=== PATIENT | female | born 1985 | race American Indian/Alaskan Native ===

== ENCOUNTER 2017-06-20 02:40 | Emergency (ER) | payer OTHER ==
[2017-06-20 03:12] VITALS: BP 111/78
[2017-06-20] MEDS ORDERED: ASPIRIN PO ONE (03:12)
[2017-06-20 04:04] LABS: Basophils % (Auto) 0.7 % (0.0-1.8); Eosinophils % (Auto) 0.6 % (0.0-4.3); Hematocrit 36.5 % (30.3-42.9); Hemoglobin 12.3 gm/dl (10.1-14.3); Lymphocytes % (Auto) 28.6 % (13.4-35.0); Mean Corpuscular HGB Conc 34 % (30-34); Mean Corpuscular Hemoglobin 30 pg (28-32); Mean Corpuscular Volume 88 fl (79-97); Mean Platelet Volume 9.1 fl (6-12); Monocytes % (Auto) 5.1 % (0.0-7.3); Platelet Count 254 K/mm3 (140-440); Red Blood Count 4.15 M/mm3 (3.65-5.03); Red Cell Distribution Width 13.5 % (13.2-15.2)
[2017-06-20 04:05] LABS: Basophils # (Auto) 0.1 K/mm3 (0.0-0.1); Eosinophils # (Auto) 0.1 K/mm3 (0.0-0.4); Lymphocytes # (Auto) 2.5 K/mm3 (1.2-5.4); Monocytes # (Auto) 0.5 K/mm3 (0.0-0.8)
[2017-06-20 04:11] LABS: BUN/Creatinine Ratio 28; Blood Urea Nitrogen 14 mg/dL (7-17); Calcium 9.2 mg/dL (8.4-10.2); Hemolysis Index 7
[2017-06-20] MEDS ORDERED: ASPIRIN ONE (08:34)
--- NOTE | 2017-06-20 10:29 | XRay Report ---
CHEST ONE VIEW INDICATION: Chest pain. COMPARISON: None similar at this institution. FINDINGS: Portable, single, frontal chest radiograph demonstrates normal cardiomediastinal silhouette. Clear lungs. Unremarkable bones. CONCLUSION: No acute disease in the chest. Thank you for the opportunity to participate in this patient's care.
[2017-06-20 10:45] LABS: Bacteria,Urine 4+ /HPF (Negative); Bilirubin,Urine NEG (Negative); Blood,Urine LG (Negative); Color,Urine Yellow (Yellow); Mucus,Urine 3+ /HPF; Urobilinogen,Urine < 2.0 mg/dL (<2.0)
[2017-06-20 10:46] LABS: WBC,Urine > 182.0 /HPF (0.0-6.0)
--- NOTE | 2017-06-20 10:47 | Emergency Department Report ---
HPI - General Chief Complaint: Chest Pain Time Seen by Provider: 06/20/17 09:22 - HPI HPI: The patient is a 32-year-old female presents for evaluation of chest pain. The patient reports chest pain for the past one week, achy in quality, midsternal in location, exacerbated with movement, mild in severity. She has a secondary complaint of dysuria for the past 1-2 weeks, mild in severity. The patient denies fever, neck pain, parasthesias, dyspnea, cough, hemoptysis, palpitations , dizziness, syncope, unilateral leg swelling, calf muscle pain, abdominal pain , vomiting, diarrhea, vaginal bleeding. Patient also denies cocaine or other stimulant use, history of DVT or PE, recent immobilization, or history of cancer. ED Past Medical Hx - Past Medical History Previous Medical History?: No - Surgical History Past Surgical History?: No - Social History Smoking Status: Former Smoker Substance Use Type: Alcohol - Medications Home Medications: Home Medications Medication Instructions Recorded Confirmed Last Taken Type Cephalexin [Keflex] 500 mg PO QID #30 capsule 06/20/17 Unknown Rx Fluconazole [Diflucan TAB] 150 mg PO ONCE #1 tablet 06/20/17 Unknown Rx Ibuprofen [Motrin] 800 mg PO Q8HR PRN #10 tablet 06/20/17 Unknown Rx metroNIDAZOLE [Flagyl] 500 mg PO Q12HR #14 tab 06/20/17 Unknown Rx ED Review of Systems ROS: Stated complaint: CP Other details as noted in HPI Constitutional: denies: fever ENT: denies: throat or neck pain Respiratory: denies: cough, shortness of breath Cardiovascular: reports chest pain Endocrine: denies unexplained weight loss or gain Gastrointestinal: denies: abdominal pain, nausea Genitourinary: reports dysuria Musculoskeletal: denies: leg swelling Skin: denies: rash Neurological: denies: headache Hematological/Lymphatic: denies: easy bleeding or easy bruising Psych: denies sadness or hopelessness Physical Exam - Physical Exam Vital Signs: Vital Signs 06/20/17 06/20/17 03:02 03:03 Temperature 99.0 F Pulse Rate 86 83 Respiratory 16 Rate Blood Pressure 111/78 O2 Sat by Pulse 96 98 Oximetry Physical Exam: General: well-nourished, well-developed, no acute distress Head: Normocephalic, atraumatic Eyes: normal sclera ENT: Mucous membranes are pink and moist Neck: trachea midline, neck supple, No neck stiffness, no cervical adenopathy Respiratory: Breath sounds equal bilaterally, no wheezing, rales, or rhonchi Cardio: S1 and S2 present, no murmurs, rubs, gallops, capillary refill is brisk Abdomen: Normoactive bowel sounds, soft abdomen, no rigidity, no guarding or rebound tenderness Chest WALL/Back: No tenderness to palpation of the chest wall, no CVA tenderness with percussion Musc: No pitting edema Skin: No rash Neuro: no facial drooping, normal speech Psych: Normal affect ED Course Vital Signs 06/20/17 06/20/17 03:02 03:03 Temperature 99.0 F Pulse Rate 86 83 Respiratory 16 Rate Blood Pressure 111/78 O2 Sat by Pulse 96 98 Oximetry ED Medical Decision Making - Lab Data Result diagrams: 06/20/17 03:21 06/20/17 03:21 - Medical Decision Making The patient was seen and examined by myself. The patient is placed on a manager monitoring and continuous pulse ox. On initial evaluation, the patient was found to be in no distress. EKG was negative for findings suggestive of acute cardiac infarct. Labs and imaging are obtained. The patient was given pain medicine. Chest x-ray is negative for pneumothorax, focal consolidation, pulmonary vascular congestion, pleural effusion, or other obvious acute cardiopulmonary disease process. Lab results revealed elevated urine WBC of 182 , positive leukocyte esterase, positive nitrite, positive bacteria, no epithelial cells, consistent with acute urinary tract infection. Otherwise labs were non-concerning including levels of troponin, WBC, hemoglobin, hematocrit, electrolytes, renal function. The patient given Keflex for treatment of urinary tract infection. The patient is given a prescription for Keflex as well. The patient was reevaluated and reported that their symptoms were markedly improved. As the patient has a LAURENCE risk score less than 2, and a well's score less than 2, the patient is at low risk of ACS or pulmonary emboli etiology of their symptoms. The patient is stable for discharge with outpatient follow-up. The patient is given follow-up and return instructions. The patient expressed understanding and agreed with the plan. The patient is discharged in stable condition. Critical care attestation.: If time is entered above; I have spent that time in minutes in the direct care of this critically ill patient, excluding procedure time. ED Disposition Clinical Impression: Acute lower UTI (urinary tract infection), Acute chest pain Disposition: - TO HOME OR SELFCARE Is pt being admited?: No Does the pt Need Aspirin: No Condition: Stable Instructions: Chest Pain (ED), Urinary Tract Infection in Women (ED) Prescriptions: Cephalexin [Keflex] 500 mg PO QID #30 capsule Fluconazole [Diflucan TAB] 150 mg PO ONCE #1 tablet Ibuprofen [Motrin] 800 mg PO Q8HR PRN #10 tablet PRN Reason: Pain metroNIDAZOLE [Flagyl] 500 mg PO Q12HR #14 tab Referrals: PRIMARY CARE, [Primary Care Provider] - 3-5 Days Time of Disposition: 10:47
[2017-06-20] MEDS ORDERED: KEFLEX PO ONE (11:13)
== END 2017-06-20 12:16 | disposition home or self-care (01) ==
LOC: ED 02:40
DX: N39.0 Urinary tract infection, site not specified (principal); R07.89 Other chest pain; Z87.891 Personal history of nicotine dependence
CPT/HCPCS: 36415; 71045; 80048; 81001; 84484; 84703; 85025; 93005; 93010

== ENCOUNTER 2021-04-11 08:39 | Emergency (ER) | payer SELFPAY ==
[2021-04-11 09:01] VITALS: BP 145/94
[2021-04-11] MEDS ORDERED: ONDANSETRON 4 MG ODT TAB PO ONE (09:55)
[2021-04-11] MEDS ORDERED: MECLIZINE 25 MG TAB PO ONE (09:55)
[2021-04-11 10:55] LABS: RBC,Urine < 1.0 /HPF (0.0-6.0)
[2021-04-11 11:09] LABS: Bilirubin,Urine Negative (Negative); Color,Urine Yellow (Yellow)
[2021-04-11 11:10] LABS: Blood,Urine 1.025 (Negative); Protein,Urine <15 mg/dL mg/dL (Negative); WBC,Urine < 1.0 /HPF (0.0-6.0)
[2021-04-11 11:12] LABS: HCG Qualitative,Urine Negative (Negative)
--- NOTE | 2021-04-11 11:24 | Emergency Department Report ---
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 denies: ataxia, chest pain, confusion, cough, diaphoresis, fever/chills, loss of appetite, malaise, seizure, shortness of breath, syncope, weakness - Related Data Previous Rx's Medication Instructions Recorded Last Taken Type Cetirizine HCl [ZyrTEC] 10 mg PO DAILY #30 capsule 04/11/21 Unknown Rx Meclizine [Antivert] 25 mg PO TID PRN #20 04/11/21 Unknown Rx Allergies Allergy/AdvReac Type Severity Reaction Status Date / Time No Known Allergies Allergy Verified 04/11/21 08:56 ED Review of Systems ROS: Stated complaint: DIZZIE Other details as noted in HPI Comment: All other systems reviewed and negative ED Past Medical Hx - Past Medical History Previous Medical History?: No - Surgical History Past Surgical History?: No - Family History Family history: no significant - Social History Smoking Status: Former Smoker Substance Use Type: Alcohol - Medications Home Medications: Home Medications Medication Instructions Recorded Confirmed Last Taken Type Cetirizine HCl [ZyrTEC] 10 mg PO DAILY #30 capsule 04/11/21 Unknown Rx Meclizine [Antivert] 25 mg PO TID PRN #20 04/11/21 Unknown Rx ED Physical Exam - General Limitations: No Limitations General appearance: alert, in no apparent distress - Head Head exam: Present: atraumatic, normocephalic - Eye Eye exam: Present: normal appearance - ENT ENT exam: Present: mucous membranes moist - Neck Neck exam: Present: normal inspection - Respiratory Respiratory exam: Present: normal lung sounds bilaterally. Absent: respiratory distress - Cardiovascular Cardiovascular Exam: Present: regular rate, normal rhythm. Absent: systolic murmur, diastolic murmur, rubs, gallop - GI/Abdominal GI/Abdominal exam: Present: soft, normal bowel sounds - Extremities Exam Extremities exam: Present: normal inspection - Back Exam Back exam: Present: normal inspection - Neurological Exam Neurological exam: Present: alert, oriented X3 - Psychiatric Psychiatric exam: Present: normal affect, normal mood - Skin Skin exam: Present: warm, dry, intact, normal color. Absent: rash ED Course Vital Signs 04/11/21 08:59 Temperature 98.1 F Pulse Rate 92 H Respiratory 20 Rate Blood Pressure 145/94 O2 Sat by Pulse 99 Oximetry ED Medical Decision Making - EKG Data EKG shows normal: sinus rhythm Rate: normal - EKG Data When compared to previous EKG there are: no significant change - Medical Decision Making Vital Signs 04/11/21 08:59 Temperature 98.1 F Pulse Rate 92 H Respiratory 20 Rate Blood Pressure 145/94 O2 Sat by Pulse 99 Oximetry Labs 04/11/21 10:11 Urine Color Yellow Urine Turbidity Clear Urine pH 6.0 Ur Specific [place] 1.000 L Urine Protein <15 mg/dl Urine Glucose (UA) Negative Urine Ketones Negative Urine Blood 1.025 Urine Nitrite Negative Ur Reducing Substances Not Reportable Urine Bilirubin Negative Urine Ictotest Not Reportable Urine Urobilinogen 0.0 Ur Leukocyte Esterase Negative Urine WBC (Auto) < 1.0 Urine RBC (Auto) < 1.0 Urine HCG, Qual Negative ABLE TO REPLICATE SYMPTOMS WITH RAPID HEAD MOVEMENT TO RIGHT ANTIVERT GIVEN WITH SOME IMPROVEMENT UA NEG PREG NEG ON DC EXAM REPORTS FEELING BETTER AMBULATORY AND TAKING PO DC HOME WITH DC PLAN OF CARE INCLUDING DIET/ACTIVITY/MEDS AND FOLLOW UP. SHE VERBALIZES UNDERSTANDING - Differential Diagnosis VERTIGO; RO UTI; RO PREG Critical care attestation.: If time is entered above; I have spent that time in minutes in the direct care of this critically ill patient, excluding procedure time. ED Disposition Clinical Impression: Vertigo Disposition: 01 HOME / SELF CARE / HOMELESS Is pt being admited?: No Does the pt Need Aspirin: No Condition: Stable Instructions: Dizziness, [id number] Additional Instructions: STAY WELL HYDRATED MED ORDERED TODAY IF PROBLEM PERSISTS FOLLOW UP WITH PCP REFERRAL BELOW Prescriptions: Meclizine [Antivert] 25 mg PO TID PRN #20 PRN Reason: Vertigo Cetirizine HCl [ZyrTEC] 10 mg PO DAILY #30 capsule Referrals: SONY BARNES MD [Primary Care Provider] - 3-5 Days Time of Disposition: 11:23
--- NOTE | 2021-04-11 13:32 | Electrocardiograph Report ---
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
== END 2021-04-11 12:00 ==
LOC: ED 08:39
DX: R42 Dizziness and giddiness (principal); Z87.891 Personal history of nicotine dependence
CPT/HCPCS: 81001; 81025; 93005; 93010; 99283; J3490; Q0162